=== PATIENT | female | born 1975 | race Caucasian/White ===

== ENCOUNTER 2025-02-13 17:44 | Emergency (ER) | payer OTHER, SELFPAY ==
[2025-02-13 17:58] VITALS: BP 166/98; PULSE 92; TEMP 37.2; O2SAT 100; BMI 26.6
--- NOTE | 2025-02-13 18:11 | ED.NECK1 ---
HPI HPI - Neck Pain/Injury General Chief Complaint: Neck Pain/Injury Stated Complaint: NECK AND SHOULDER PAIN Time Seen by Provider: 02/13/25 17:45 Source: patient Mode of arrival: walk-in Limitations: no limitations History of Present Illness HPI Narrative: Patient is a female who presents to the emergency department for pain in the right shoulder extending into the right side of the neck for the last 2 months. She states pain is steadily worsening and it is difficult for her to sleep at night due to pain in the neck and shoulder. She denies any radiculopathy into the arms. No peripheral paresthesias. No falls or injuries. She states she does have a remote history of a pinched nerve in her neck. She has a doctor's appointment on 02/19/2025 but states she did not think she could wait due to the pain. No medications prior to arrival today. She has no concern for . Related Data Home Medications ?Medication ?Instructions ?Recorded ?Confirmed No Known Home Medications 02/13/25 02/13/25 Previous Rx's ?Medication ?Instructions ?Recorded ketorolac 10 mg tablet 10 mg PO TID PRN pain #10 tabs 02/13/25 methocarbamol 750 mg tablet 750 mg PO TID PRN pain #20 tabs 02/13/25 methylprednisolone 4 mg tablets in See Rx Instructions .Route 02/13/25 a dose pack (Medrol (Moy)) .COMPLEX #21 ea Allergies Allergy/AdvReac Type Severity Reaction Status Date / Time No Known Drug Allergies Allergy Verified 02/13/25 17:57 Opioid HPI Opioid Management Most Recent Opioid Data: Last JAN Pain Assessment 02/13/25 18:28 Review of Systems ROS Constitutional Denies: fever or chills Ears, nose, mouth, and throat Reports: neck pain; Denies: throat pain or nasal congestion Respiratory Denies: shortness of breath Gastrointestinal Denies: nausea or vomiting Musculoskeletal Reports: neck pain and extremity pain; Denies: back pain Integumentary/Breast Denies: rash Neurological Denies: numbness in extremities or weakness in extremities Hematologic/Lymphatic Denies: easy bruising or easy bleeding PFSH PFSH Social History Little interest or pleasure in doing things: not at all Feeling down, depressed, or hopeless: not at all Exam Narrative Exam Narrative: Gen.: Awake, alert, in no distress Head: Normocephalic, atraumatic ENT: Moist mucous membranes, no bony point tenderness of the posterior cervical spine. Diffuse tenderness of the right paraspinal muscles of the cervical spine and trapezius area of the right shoulder. Respiratory: No respiratory distress Extremities: Moves extremities equally, no injuries noted. 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 No deficit in bicep tendon strength bilaterally Psych: Normal mood and affect Neuro: No focal neuro deficit Skin: Warm, dry, intact Constitutional Vital Signs, click to edit/add: Last Vital Signs Temp 99 F 02/13/25 17:58 Pulse 92 H 02/13/25 17:58 Resp 20 02/13/25 17:58 BP 166/98 H 02/13/25 17:58 Pulse Ox 100 02/13/25 17:58 O2 Del Method Room Air 02/13/25 17:58 Course Vital Signs Vital signs: Vital Signs Temperature 99 F 02/13/25 17:58 Pulse Rate 92 H 02/13/25 17:58 Respiratory Rate 20 02/13/25 17:58 Blood Pressure 166/98 H 02/13/25 17:58 Pulse Oximetry 100 02/13/25 17:58 Oxygen Delivery Method Room Air 02/13/25 17:58 Temperature 99 F 02/13/25 17:58 Pulse Rate 92 H 02/13/25 17:58 Respiratory Rate 20 02/13/25 17:58 Blood Pressure 166/98 H 02/13/25 17:58 Pulse Oximetry 100 02/13/25 17:58 Oxygen Delivery Method Room Air 02/13/25 17:58 MDM - Neck Pain/Injury MDM Narrative Medical decision making narrative: X-rays of the cervical spine and shoulder are stable. Patient with no focal neurodeficits in the ER. She is medicated for pain with improvement and will be discharged home with muscle relaxant, steroid taper and NSAID. She has an upcoming appointment with her PCP, further evaluation per primary care office. Return to the ER if symptoms change or worsen SUPERVISED APC VISIT, PHYSICIAN ATTESTATION: Based on the medical record the care appears appropriate. ? Medical Records Attestation: I reviewed the patient's medical records. Discharge Plan Discharge Chief Complaint: Neck Pain/Injury Clinical Impression: Acute neck pain, Strain of right trapezius muscle Patient Disposition: Home, Self-Care Time of Disposition Decision: 19:42 Condition: Good Prescriptions / Home Meds: New ketorolac 10 mg tablet 10 mg PO TID PRN (Reason: pain) Qty: 10 0RF methocarbamol 750 mg tablet 750 mg PO TID PRN (Reason: pain) Qty: 20 0RF methylprednisolone [Medrol (Moy)] 4 mg tablets,dose pack See Rx Instructions .ROUTE .COMPLEX Qty: 21 0RF Rx Instructions: Taper as directed No Action No Known Home Medications Print Language: [place] Islander Instructions: Muscle Strain (ED), Neck Pain (ED) Referrals: Physician,Non-Staff, MD [Physician] - 1 week
[2025-02-13] MEDS: ORPHENADRINE 60 MG/ 2 ML VIAL IM (18:28)
[2025-02-13] MEDS: HYDROCODONE/ACET 5-325 MG TABLET 1 TAB PO (18:28)
[2025-02-13] MEDS: KETOROLAC TROMETHAMINE 60 MG/2 ML VIAL IM (18:28)
== END 2025-02-13 19:52 | disposition home or self-care (01) ==
PROVIDERS: Emergency Provider Emergency Medicine; PCP Family Medicine
DX: S46.811A Strain of other muscles, fascia and tendons at shoulder and upper arm level, right arm, initial encounter (principal); M54.2 Cervicalgia; X58.XXXA Exposure to other specified factors, initial encounter
CPT/HCPCS: 72040; 73030; 96372; 99285; J1885; J2360